=== PATIENT | male | born 1980 | race Caucasian/White ===

== ENCOUNTER → 2016-05-05 | Outpatient (CLI) | payer BC ==
[2016-05-05 15:20] LABS: CHLORIDE,CL 107 mmol/L (98-110); SODIUM,NA 142 mmol/L (136-146)
--- NOTE | 2016-05-05 16:09 | CR ---
EXAMINATION: Abdomen HISTORY: Diverticulitis COMPARISON: None TECHNIQUE: AP and right views of the abdomen FINDINGS: There is no free air under the diaphragm. There is a nonobstructive bowel gas pattern note d. No organomegaly or abnormal calcifications project over the kidneys. The visualized osseous struc tures appear normal. IMPRESSION: Nonobstructive bowel gas pattern.
== END ==
LOC: MW.CHIM 14:45
PROVIDERS: ATTEND Internal Medicine
DX: K57.92 Diverticulitis of intestine, part unspecified, without perforation or abscess without bleeding (principal)
CPT/HCPCS: 36415; 74020; 74020-26; 80048; 85025

== ENCOUNTER 2016-08-30 12:49 | Emergency (ER) | payer BC ==
[2016-08-30] MEDS ORDERED: Morphine 10 MG/ML Syringe IV ONE (12:56)
[2016-08-30] MEDS ORDERED: Diphtheria,Pertussis(Acell),Tetanus Vaccine 0.5 ML Syringe IM ONE (12:56)
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
[2016-08-30 13:34] LABS: CHLORIDE,CL 104 mmol/L (98-110); SODIUM,NA 139 mmol/L (136-146)
--- NOTE | 2016-08-30 14:19 | CR ---
EXAMINATION: PA chest radiograph. HISTORY: Shortness of breath. FINDINGS: The trachea is midline. The cardiomediastinal silhouette is within normal limits. No pulmonary infil trates, effusions or pneumothorax. Osseous structures appear unremarkable. IMPRESSION: No acute cardiopulmonary process.
--- NOTE | 2016-08-30 14:22 | CR ---
EXAMINATION: Cervical spine HISTORY: Pain COMPARISON: None TECHNIQUE: AP and lateral views FINDINGS: There is mild reversal of the normal cervical lordosis, likely positional. There is mild v ertebral body height loss at C7. Facet alignment is preserved. Prevertebral soft tissues are within normal limits. No definite fracture or dislocation. IMPRESSION: No definite acute cervical spinal abnormality.
--- NOTE | 2016-08-30 14:22 | CR ---
EXAMINATION: Pelvis HISTORY: Pain COMPARISON: None TECHNIQUE: AP view FINDINGS: There is no acute osseous abnormality, dislocation, or fracture. The SI joints are symmetr ic. The iliopectineal and ilioischial lines are intact. Bone mineralization and joint spaces are alex ssly preserved. IMPRESSION: No acute osseous abnormality identified.
--- NOTE | 2016-08-30 14:24 | CR ---
EXAMINATION: Right ankle HISTORY: Pain COMPARISON: None TECHNIQUE: 3 views FINDINGS: There is mild generalized soft tissue swelling. There is no acute osseous abnormality, di slocation, or fracture.. Well-corticated ossific density noted inferior to the distal tibia, possibl y secondary to an old injury. Joint spaces appear preserved. Bone mineralization is normal. IMPRESSION: Mild soft tissue swelling without acute osseous abnormality identified.
[2016-08-30 15:56] VITALS: BP 137/89
== END 2016-08-30 15:50 | disposition home or self-care (01) ==
LOC: MW.ED 12:49
DX: S93.401A Sprain of unspecified ligament of right ankle, initial encounter (principal); Z23 Encounter for immunization; V86.59XA Driver of other special all-terrain or other off-road motor vehicle injured in nontraffic accident, initial encounter
CPT/HCPCS: 36415; 71010; 72040; 72170; 73610; 80053; 81001; 85025; 90471; 90715; 96374; 99284; J2270

== ENCOUNTER 2018-03-02 14:04 | Emergency (ER) | payer BC ==
[2018-03-02] MEDS ORDERED: Sodium Chloride 0.9% 2.5 ML Syringe FLUSH PRN (14:32)
[2018-03-02] MEDS ORDERED: Sodium Chloride 0.9% 10 ML Syringe FLUSH PRN (14:32)
[2018-03-02] MEDS ORDERED: Acetaminophen 325 MG Tab PO ONE (14:33)
--- NOTE | 2018-03-02 14:33 | EDM.PDOC ---
ED HPI GENERAL MEDICAL PROBLEM - General Chief Complaint: Chest Pain Stated Complaint: CHEST PAIN Time Seen by Provider: 03/02/18 14:33 Source of Information: Reports: Patient History Limitations: Reports: No Limitations - History of Present Illness INITIAL COMMENTS - FREE TEXT/NARRATIVE: HISTORY AND PHYSICAL: History of present illness: Patient is a 37-year-old male here with complaint of abdominal pain and fever that started last night. He states today the pain radiated up into his chest. He is feeling somewhat short of breath. He denies nausea, vomiting, diarrhea, cough. He states he's been having difficulty with stools last one being yesterday which was normal. He states he had some bright red blood in his stool then. He has history of diverticulitis but states that his pain is usually on the left and this time is more in the mid lower abdomen. Review of systems: As per history of present illness and below otherwise all systems reviewed and negative. Past medical history: As per history of present illness and as reviewed below otherwise noncontributory. Surgical history: As per history of present illness and as reviewed below otherwise noncontributory. Social history: No reported history of drug or alcohol abuse. Family history: As per history of present illness and as reviewed below otherwise noncontributory. Physical exam: General: Patient sitting comfortably in no acute distress and nontoxic appearing HEENT: Atraumatic, normocephalic, pupils reactive, negative for conjunctival pallor or scleral icterus, mucous membranes moist, throat clear, neck supple, nontender, trachea midline. No meningeal signs. Lungs: Clear to auscultation, breath sounds equal bilaterally, chest nontender. Heart: S1S2, regular, negative for clicks, rubs, or overt murmur. Abdomen: Suprapubic pain to palpation. No rigidity or guarding. Soft, nondistended. Negative for masses or hepatosplenomegaly. Negative for costovertebral tenderness. Pelvis: Stable nontender. Genitourinary: Deferred. Rectal: Deferred. Extremities: Atraumatic, negative for cords or calf pain. Neurovascular unremarkable. Neuro: Awake, alert, oriented. Cranial nerves II through XII unremarkable. Cerebellum unremarkable. Motor and sensory unremarkable throughout. Exam nonfocal. Notes: Discussed inpatient vs outpatient treatment. Patient would like outpatient antibiotics and will return to ED as needed as discussed. Diagnostics: CBC, CMP, lipase, UA, troponin, EKG, chest x-ray, CT abdomen and pelvis with contrast, rapid strep, influenza Therapeutics: 1L Normal Saline IV 30mg Toradol IV Prescriptions: Ciprofloxacin 500mg BID Metronidazole 500mg TID Tramadol (#12) Impression: Sigmoid diverticulitis Plan: 1. Take antibiotic as instructed. Giles diet as tolerated.Tylenol or motrin for pain/fever, may take tramadol as needed for severe pain. 2. Follow up with primary care provider 3. Return to ED as needed as discussed Definitive disposition and diagnosis as appropriate pending reevaluation and review of above. abdomen Pain Score (Numeric/FACES): 8 chest Pain Score (Numeric/FACES): 4 - Related Data Allergies Allergy/AdvReac Type Severity Reaction Status Date / Time No Known Allergies Allergy Verified 08/30/16 13:28 Home Meds: Home Meds Ciprofloxacin [Ciprofloxacin HCl] 500 mg PO BID 10 Days #20 tab 03/02/18 [Rx] metroNIDAZOLE [Flagyl] 500 mg PO TID 10 Days #30 tab 03/02/18 [Rx] traMADol [Ultram] 50 mg PO Q6H PRN #12 tab 03/02/18 [Rx] ED ROS GENERAL - Review of Systems Review Of Systems: ROS reveals no pertinent complaints other than HPI. ED EXAM, GENERAL - Physical Exam Exam: See Below (See dictation) Course - Vital Signs Last Recorded V/S: Last Vital Signs Temp 99.4 F 03/02/18 15:43 Pulse 126 H 03/02/18 14:19 Resp 20 03/02/18 14:19 BP 138/87 03/02/18 14:19 Pulse Ox 97 03/02/18 14:19 - Orders/Labs/Meds Orders: Active Orders 24 hr Category Date Time Status EKG Documentation Completion [RC] STAT Care 03/02/18 14:22 Active CULTURE STREP A CONFIRMATION [RM] Stat Lab 03/02/18 14:57 Results STREP SCRN A RAPID W CULT CONF [RM] Stat Lab 03/02/18 14:57 Results UA RFX WILDA AND CULT IF INDIC [URIN] Stat Lab 03/02/18 15:35 Ordered Sodium Chloride 0.9% [Saline Flush] Med 03/02/18 14:32 Active 10 ml FLUSH ASDIRECTED PRN Sodium Chloride 0.9% [Saline Flush] Med 03/02/18 14:32 Active 2.5 ml FLUSH ASDIRECTED PRN Saline Lock Insert [OM.PC] Stat Oth 03/02/18 14:21 Ordered Medication Orders Sodium Chloride (Saline Flush) 10 ml FLUSH ASDIRECTED PRN PRN Reason: Keep Vein Open Last Admin: 03/02/18 14:54 Dose: 10 ml Sodium Chloride (Saline Flush) 2.5 ml FLUSH ASDIRECTED PRN PRN Reason: Keep Vein Open Last Admin: 03/02/18 14:54 Dose: 2.5 ml Labs: Laboratory Tests 03/02/18 03/02/18 Range/Units 14:20 14:20 WBC 9.71 (4.0-11.0) K/uL RBC 4.82 (4.50-5.90) M/uL Hgb 16.0 (13.0-17.0) g/dL Hct 45.0 (38.0-50.0) % MCV 93.4 (80.0-98.0) fL MCH 33.2 H (27.0-32.0) pg MCHC 35.6 (31.0-37.0) g/dL RDW Std Deviation 43.9 (28.0-62.0) fl RDW Coeff of Luca 13 (11.0-15.0) % Plt Count 98 L (150-400) K/uL MPV 10.20 (7.40-12.00) fL Neut % (Auto) 90.8 H (48.0-80.0) % Lymph % (Auto) 3.8 L (16.0-40.0) % [place] % (Auto) 5.1 (0.0-15.0) % Eos % (Auto) 0.2 (0.0-7.0) % Baso % (Auto) 0.1 (0.0-1.5) % Neut # (Auto) 8.8 H (1.4-5.7) K/uL Lymph # (Auto) 0.4 L (0.6-2.4) K/uL [place] # (Auto) 0.5 (0.0-0.8) K/uL Eos # (Auto) 0.0 (0.0-0.7) K/uL Baso # (Auto) 0.0 (0.0-0.1) K/uL Nucleated RBC % 0.0 /100WBC Nucleated RBCs # 0 K/uL Sodium 135 L (136-148) mmol/L Potassium 3.9 (3.5-5.1) mmol/L Chloride 101 (98-107) mmol/L Carbon Dioxide 24.0 (21.0-32.0) mmol/L BUN 11 (7.0-18.0) mg/dL Creatinine 0.9 (0.8-1.3) mg/dL Est Cr Clr Drug Dosing 117.16 mL/min Estimated GFR (MDRD) > 60.0 ml/min Glucose 123 H (74-106) mg/dL Calcium 9.7 (8.5-10.1) mg/dL Total Bilirubin 2.8 H (0.2-1.0) mg/dL AST 40 H (15-37) IU/L ALT 78 H (14-63) IU/L Alkaline Phosphatase 78 (46-116) U/L Troponin I < 0.050 (0.000-0.056) ng/mL Total Protein 7.9 (6.4-8.2) g/dL Albumin 4.0 (3.4-5.0) g/dL Globulin 3.9 (2.6-4.0) g/dL Albumin/Globulin Ratio 1.0 (0.9-1.6) Meds: Medications Generic Name Dose Route Start Last Admin Trade Name Freq PRN Reason Stop Dose Admin Sodium Chloride 10 ml 03/02/18 14:32 03/02/18 14:54 Saline Flush FLUSH 10 ml ASDIRECTED PRN Administration Keep Vein Open Sodium Chloride 2.5 ml 03/02/18 14:32 03/02/18 14:54 Saline Flush FLUSH 2.5 ml ASDIRECTED PRN Administration Keep Vein Open Discontinued Medications Generic Name Dose Route Start Last Admin Trade Name Freq PRN Reason Stop Dose Admin Acetaminophen 650 mg 03/02/18 14:33 03/02/18 14:53 Tylenol PO 03/02/18 14:34 650 mg NOW ONE Administration Sodium Chloride 1,000 mls @ 999 mls/hr 03/02/18 15:35 03/02/18 15:39 Normal Saline IV 03/02/18 16:35 999 mls/hr STAT ONE Administration Iopamidol 100 ml 03/02/18 16:11 03/02/18 16:12 [id number] (76%) IVPUSH 03/02/18 16:12 100 ml ONETIME ONE Administration Ketorolac Tromethamine 30 mg 03/02/18 15:35 03/02/18 15:39 Toradol IVPUSH 03/02/18 15:36 30 mg ONETIME ONE Administration Departure - Departure Time of Disposition: 16:42 Disposition: Home, Self-Care 01 Condition: Good Clinical Impression: Diverticulitis Prescriptions: Ciprofloxacin [Ciprofloxacin HCl] 500 mg PO BID 10 Days #20 tab metroNIDAZOLE [Flagyl] 500 mg PO TID 10 Days #30 tab traMADol [Ultram] 50 mg PO Q6H PRN #12 tab PRN Reason: Pain (Severe 7-10) Referrals: PCP,Unknown [Primary Care Provider] - Forms: ED Department Discharge - My Orders Last 24 Hours: My Active Orders 03/02/18 14:21 Saline Lock Insert [OM.PC] Stat 03/02/18 14:22 EKG Documentation Completion [RC] STAT 03/02/18 14:32 Sodium Chloride 0.9% [Saline Flush] 10 ml FLUSH ASDIRECTED PRN Sodium Chloride 0.9% [Saline Flush] 2.5 ml FLUSH ASDIRECTED PRN 03/02/18 14:57 CULTURE STREP A CONFIRMATION [RM] Stat STREP SCRN A RAPID W CULT CONF [RM] Stat 03/02/18 15:35 UA RFX WILDA AND CULT IF INDIC [URIN] Stat - Assessment/Plan Last 24 Hours: My Active Orders 03/02/18 14:21 Saline Lock Insert [OM.PC] Stat 03/02/18 14:22 EKG Documentation Completion [RC] STAT 03/02/18 14:32 Sodium Chloride 0.9% [Saline Flush] 10 ml FLUSH ASDIRECTED PRN Sodium Chloride 0.9% [Saline Flush] 2.5 ml FLUSH ASDIRECTED PRN 03/02/18 14:57 CULTURE STREP A CONFIRMATION [RM] Stat STREP SCRN A RAPID W CULT CONF [RM] Stat 03/02/18 15:35 UA RFX WILDA AND CULT IF INDIC [URIN] Stat
[2018-03-02 15:03] LABS: CHLORIDE,CL 101 mmol/L (98-107); SODIUM,NA 135 mmol/L (136-148)
[2018-03-02] MEDS ORDERED: Ketorolac 30 MG/ML SDV IVPUSH ONE (15:35)
[2018-03-02] MEDS ORDERED: Sodium Chloride 0.9% 1,000 ML IV ONE (15:35)
--- NOTE | 2018-03-02 15:37 | CR ---
Indication: Chest pain. Technique: Single AP portable view of the chest was obtained. Comparison: None Findings: The heart is normal in size. The lungs are clear. No infiltrate, pleural effusion, or pneumothorax is identified. Impression: No acute cardiopulmonary process. Dictated by Dhara Britton MD @ Mar 02 2018 3:35PM Signed by Dr. Dhara Britton @ Mar 02 2018 3:35PM
[2018-03-02] MEDS ORDERED: Iopamidol 755 Mg/ML 100 ML Bottle IVPUSH ONE (16:11)
--- NOTE | 2018-03-02 16:29 | CT ---
Indication: Lower abdominal pain since yesterday. Technique: Multiple contiguous axial images were obtained from the lung bases through the symphysis pubis after the intravenous administration of 100 milliliters Isovue 370. Please note that all CT scans at this facility use dose modulation, iterative reconstruction, and/or weight-based dosing when appropriate to reduce radiation dose to as low as reasonably achievable. Comparison: None Findings: The lung bases are clear. The heart is normal in size. No pericardial effusions identified. Diffuse fatty infiltration of the liver is identified. The liver, gallbladder, spleen, pancreas, adrenals, and kidneys are otherwise normal. No intrahepatic biliary ductal dilatation is identified. No hydronephrosis is seen. In the pelvis, the urinary bladder and prostate gland are normal. The small and large bowel are normal in caliber. Multiple colonic diverticula are identified. Sigmoid diverticulitis is identified. No abscess is identified. No free air is seen. The aorta is normal in caliber. No lytic or blastic lesions of the spine are seen. Impression: Findings consistent with sigmoid diverticulitis. No abscess or free air is identified. Fatty infiltration of the liver These findings were discussed with Dallin Allison at the time of this dictation. Please note that all CT scans at this facility use dose modulation, iterative reconstruction, and/or weight-based dosing when appropriate to reduce radiation dose to as low as reasonably achievable. Dictated by Dhara Britton MD @ Mar 02 2018 4:22PM Signed by Dr. Dhara Britton @ Mar 02 2018 4:28PM
[2018-03-02 17:03] VITALS: BP 132/81
== END 2018-03-02 17:03 | disposition home or self-care (01) ==
LOC: MW.ED 14:04
DX: K57.32 Diverticulitis of large intestine without perforation or abscess without bleeding (principal)
CPT/HCPCS: 36415; 71045; 74177; 80053; 84484; 85025; 87081; 87804; 87880; 93005; 96361; 96374; 99285; A9270; J1885; J7040; Q9967; 99283